=== PATIENT | male | born 1995 | race Caucasian/White ===

== ENCOUNTER 2022-07-16 09:33 | Emergency (ER) | payer BC, SELFPAY ==
[2022-07-16 09:49] VITALS: BP 141/88; PULSE 67; RESP 18; TEMP 36.6; O2SAT 99; BMI 24.1
[2022-07-16 10:14] LABS: UTC Influenza A Antigen Negative (Negative); UTC Influenza B Antigen Negative (Negative)
--- NOTE | 2022-07-16 10:15 | EXP.UTC ---
Discharge Plan Disposition Patient Disposition: Home, Self-Care Condition: Good Prescriptions Prescriptions: New ondansetron HCl 4 mg tablet 4 mg PO Q8H 4 Days Qty: 12 0RF Referrals Follow up/Referrals: Provider,Referral, [Primary Care Provider] - See instructions Activity Restrictions/Add. Instructions Additional Instructions/Restrictions: *Monitor Temp, Over the counter Motrin or Tylenol as directed/as needed Tylenol every 4 hours and Motrin every 6 hours (as long as your family doctor has told you that you can take it) for fever or pain. and straight to ER if unable to lower temp less than 101.0 after medication given *Warm salt water gargles may help to soothe the throat *Throat Lozenges? *Warm fluids like tea with honey may help to soothe the throat? *Sleep elevated *Humidifier/Vaporizer Drink extra fluids with and between meals. If you have difficulty drinking, try very small amounts of water or suck on ice chips. ? Avoid fruit juices, as these do not replace minerals and can actually increase diarrhea. ? Children and adults can use sports drinks to replenish electrolytes. Younger children and infants should use products formulated for children, like oral rehydration solutions. ? Eat food in small amounts and let your stomach recover. ? Get lots of rest. You may feel tired or weak. ? No greasy or fried foods for the next 24-48 hours BRAT diet Bananas Rice Apples and [place] ? Make sure to drink plenty of liquids ? Return if needed ? Straight to ER if any life threatening symptoms ? Zofran as prescribed ? Follow up with family doctor in the next 48-72 hours if no improvement or any worsening of symptoms Your throat swab was sent for culture. Those results are typically sent to your primary care. Be sure to follow up in 2-3 days with your family doctor/primary care physician if no improvement so they can review those result and treat if necessary. If you don?t have a primary care doctor, I recommend you get one but in the mean time, you will have to return to a walk in clinic Follow up IMMEDIATELY for new or worsening symptoms or no Noticeable improvement over the next 48-72 hours. 911 for difficulty breathing or swallowing Clinical Impressions Clinical Impression: Viral syndrome Stand Alone Forms Stand Alone Forms: Work/School Release Instructions Patient Instructions: Sore Throat, DI for Fever (Symptom) -- Adult, Nausea and Vomiting-Adult Discharge ED Provider[place]ena [place] [facility] [place] General Stated complaint: Vomitting, chills, BA Mode of Arrival: Ambulatory Source of Information: Patient Limitations: No Limitations Time Seen by Provider: 07/16/22 10:15 Description of Symptoms (Recalled from Triage Doc. by RN): VOMITING, BODY ACHES, FEVER SINCE LAST NIGHT HEENT Symptoms (Recalled from RN notes): No Resp Symptoms (Recalled from RN notes): Yes Skin Symptoms (Recalled from RN notes): No MS Symptoms (Recalled from RN notes): No Functional Status (Recalled from RN notes): BODYACHES History of Present Illness Provider Complaint: Patient states that last night he started with body aches, cold chills, nausea vomiting and sore throat States that he was up most of the night vomiting and this morning he was still not feeling well so he came in to get checked Related Data Previous Rx's Medication Instructions Recorded ondansetron HCl 4 mg tablet 4 mg PO Q8H 4 days #12 tabs 07/16/22 Allergies Allergy/AdvReac Type Severity Reaction Status Date / Time No Known Allergies Allergy Unverified 02/13/21 16:35 Worker's Comp Is this a Worker's Comp case?: No PFSH PFSH Social History Smoking Status: Never smoker alcohol intake: never substance use type: denies use current occupational status: employed Travel in the last 8 weeks: None household members: family housing: [facility]
[2022-07-16 10:30] LABS: UTC Strep Screen (Rapid) Negative (Negative)
[2022-07-16 10:40] VITALS: BP 141/88; PULSE 67; RESP 18; TEMP 36.6; O2SAT 99
== END 2022-07-16 10:40 | disposition home or self-care (01) ==
PROVIDERS: Emergency Provider Nurse Practitioner
DX: B34.9 Viral infection, unspecified (principal); R11.10 Vomiting, unspecified; R50.9 Fever, unspecified
CPT/HCPCS: 87804; 87880; 99212; G0463

== ENCOUNTER 2022-08-20 15:15 | Emergency (ER) | payer BC, SELFPAY ==
[2022-08-20 15:16] VITALS: BP 155/110; PULSE 102; RESP 18; TEMP 36.7; O2SAT 100; BMI 24.3
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
[2022-08-20 16:00] VITALS: BP 139/90; O2SAT 99
--- NOTE | 2022-08-20 16:14 | PC.NURSE ---
speaking to [facility]
--- NOTE | 2022-08-20 16:29 | PC.NURSE ---
DR KELLY SPOKE WITH DR NICOLAS HE IS GONNA FOLLOW UP WITH THEM IN THEIR CLINIC
[2022-08-20 16:30] VITALS: BP 131/94; PULSE 90; O2SAT 98
[2022-08-20 17:00] VITALS: BP 132/92; PULSE 87; O2SAT 99
[2022-08-20 17:30] VITALS: BP 139/99; PULSE 83; O2SAT 99
[2022-08-20 17:52] VITALS: BP 139/99; PULSE 83; RESP 18; TEMP 36.6; O2SAT 98
== END 2022-08-20 17:54 | disposition home or self-care (01) ==
PROVIDERS: Emergency Provider Emergency Medicine
DX: T65.91XA Toxic effect of unspecified substance, accidental (unintentional), initial encounter (principal); T22.511A Corrosion of first degree of right forearm, initial encounter; T32.0 Corrosions involving less than 10% of body surface
CPT/HCPCS: 99283

== ENCOUNTER 2022-11-25 21:52 | Emergency (ER) | payer BC, SELFPAY ==
[2022-11-25 21:54] VITALS: BP 133/88; PULSE 89; RESP 16; TEMP 36.4; O2SAT 100; BMI 25.8
[2022-11-25 22:22] LABS: Strep Scrn Group A (Rapid) Negative (Negative)
[2022-11-25 22:30] VITALS: BP 132/94; PULSE 77; O2SAT 99
[2022-11-25 23:00] VITALS: BP 135/85; PULSE 80; O2SAT 99
--- NOTE | 2022-11-25 23:01 | PC.NURSE ---
Dr. Mclain at
--- NOTE | 2022-11-25 23:02 | HMH.EDGENADL ---
Discharge Plan Disposition Patient Disposition: Home, Self-Care Chief Complaint: PAIN Prescriptions Prescriptions: No Action ondansetron HCl 4 mg tablet 4 mg PO Q8H 4 Days Qty: 12 0RF oxycodone-acetaminophen [Percocet] 7.5-325 mg tablet 1 tab PO Q6H PRN (Reason: pain) Qty: 20 0RF Referrals Follow up/Referrals: Provider,Referral, [Primary Care Provider] - See instructions Clinical Impressions Clinical Impression: Pharyngitis Instructions Patient Instructions: Sore Throat Discharge ED Provider: [facility] (ED)[facility] HPI General Chief complaint: PAIN Stated complaint: sore throat, Feels as if closing up Time Seen by Provider: 11/25/22 23:02 Mode of Arrival: Ambulatory Source of Information: Patient and Medical Record Limitations: No Limitations Description of Symptoms (Recalled from ER Triage Doc. by RN): pt c/o sore throat, states feels swollen x4 days. Pt reports did have a fever 4 days ago. History of Present Illness HPI narrative: sore throat with feeling of closure over the last few days - no rash but has fever - no diabetes or tob Onset (ago): day(s) Location: mouth Severity: moderate Consistency: intermittent Treatments prior to arrival: none Related Data Previous Rx's Medication Instructions Recorded ondansetron HCl 4 mg tablet 4 mg PO Q8H 4 days #12 tabs 07/16/22 oxycodone-acetaminophen 7.5 mg-325 1 tab PO Q6H PRN pain #20 tabs 08/20/22 mg tablet (Percocet) Allergies Allergy/AdvReac Type Severity Reaction Status Date / Time No Known Allergies Allergy Unverified 02/13/21 16:35 [facility] Disclaimer: The information contained in this section may have been updated after the patient was seen, as this information can be updated by other users. Social History Smoking Status: Never smoker alcohol intake: never substance use type: denies use current occupational status: employed Travel in the last 8 weeks: None household members: family housing: house ROS Obtained: Yes All systems reviewed & no additional complaints except as documented Physical Exam General General appearance: alert Head Head exam: normocephalic Eye Eye exam: Present PERRL and EOMI ENT ENT exam: Present mucous membranes moist and TM's normal bilaterally Expanded ENT Exam Mouth exam: Absent drooling Throat exam: Present tonsillar erythema; Absent tonsillar exudate or muffled voice Neck Neck exam: Present full ROM and trachea midline Respiratory Respiratory exam: Present normal lung sounds bilaterally; Absent respiratory distress Cardiovascular Cardiovascular exam: Present regular rate Abdominal Exam Abdominal exam: Present soft Extremities Exam Extremities exam: Present full ROM Neurological Exam Neurological exam: Present alert, oriented X3 and CN II-XII intact; Absent motor sensory deficit Psychiatric Psychiatric exam: Present normal affect Skin Skin exam: Absent rash Medical Decision Making Medical Records Medical records reviewed: Yes I reviewed the patient's medical records. Russell Inquiry Pt receiving controlled substance: No Vital Signs: 11/25/22 21:54 11/25/22 22:30 Temperature 97.6 F Temperature Source Oral Pulse Rate 77 Pulse Rate [Right Radial] 89 Respiratory Rate 16 Blood Pressure 132/94 H Blood Pressure [Right Arm] 133/88 Blood Pressure Mean [Right Arm] 103 Blood Pressure Source [Right Arm] Automatic Cuff Blood Pressure Position [Right Arm] Sitting 02 Sat by Pulse Oximetry 100 99 Oxygen Delivery Method Room Air Room Air Lab Data Lab results reviewed: Yes I reviewed the patient's lab results. Lab Results 11/25/22 22:01: Group A Strep Rapid Negative Orders (Tests/Meds): ORDERS Category Date Time Status Strep Scrn Group A (Rapid) Stat Lab 11/25/22 22:01 Completed Strep Screen Confirmation Stat Micro 11/25/22 22:01 Received Medical Decision Narrative
[2022-11-25 23:16] LABS: Basophils # 0.1 K/mm3 (0-0.2); Basophils % 0.8 % (0.1-2.0); Eosinophils # 0.1 K/mm3 (0.0-0.4); Eosinophils % 0.9 % (0.1-12.0); Hematocrit 44.2 % (42.0-52.0); Hemoglobin 14.2 g/dL (14.1-18.0); Lymphocytes # 2.1 K/mm3 (0.7-4.5); Lymphocytes % 21.6 % (10-50); Mean Corpuscular HGB Conc 32.2 g/dL (31.8-35.4); Mean Corpuscular Hemoglobin 26.9 pg (27.0-31.2); Mean Corpuscular Volume 83.4 fl (80-94); Monocytes # 0.7 K/mm3 (0.1-1.0); Monocytes % 6.7 % (1.7-9.3); Neutrophils # 6.8 K/mm3 (1.8-7.8); Neutrophils % 69.9 % (37.0-80.0); Platelet Count 278 K/mm3 (142-424); Red Cell Distribution Width 13.2 % (11.5-17.5); White Blood Count 9.7 K/mm3 (4.8-10.8)
--- NOTE | 2022-11-25 23:19 | HMH.EDGENADL ---
Discharge Plan Disposition Patient Disposition: Home, Self-Care Prescriptions Prescriptions: New cephalexin [cephalexin] 500 mg capsule 500 mg PO TID Qty: 30 0RF No Action ondansetron HCl 4 mg tablet 4 mg PO Q8H 4 Days Qty: 12 0RF oxycodone-acetaminophen [Percocet] 7.5-325 mg tablet 1 tab PO Q6H PRN (Reason: pain) Qty: 20 0RF Referrals Follow up/Referrals: Provider,Referral, MD [Primary Care Provider] - See instructions Clinical Impressions Clinical Impression: Pharyngitis Stand Alone Forms Stand Alone Forms: Work/School Release Instructions Patient Instructions: Sore Throat Discharge ED Provider: [facility] ([facility] HPI General Chief complaint: PAIN Stated complaint: sore throat, Feels as if closing up Time Seen by Provider: 11/25/22 23:02 Mode of Arrival: Ambulatory Source of Information: Patient and Medical Record Limitations: No Limitations Description of Symptoms (Recalled from ER Triage Doc. by RN): pt c/o sore throat, states feels swollen x4 days. Pt reports did have a fever 4 days ago. History of Present Illness Onset (ago): day(s) Location: mouth Severity: moderate Treatments prior to arrival: none Related Data Previous Rx's Medication Instructions Recorded ondansetron HCl 4 mg tablet 4 mg PO Q8H 4 days #12 tabs 07/16/22 oxycodone-acetaminophen 7.5 mg-325 1 tab PO Q6H PRN pain #20 tabs 08/20/22 mg tablet (Percocet) cephalexin 500 mg capsule 500 mg PO TID #30 caps 11/25/22 Allergies Allergy/AdvReac Type Severity Reaction Status Date / Time No Known Allergies Allergy Unverified 02/13/21 16:35 [facility] Disclaimer: The information contained in this section may have been updated after the patient was seen, as this information can be updated by other users. Social History Smoking Status: Never smoker alcohol intake: never substance use type: denies use current occupational status: employed Travel in the last 8 weeks: None household members: family housing: house ROS Obtained: Yes All systems reviewed & no additional complaints except as documented Physical Exam General General appearance: alert Head Head exam: normocephalic Eye Eye exam: Present PERRL and EOMI ENT ENT exam: Present normal oropharynx, mucous membranes moist and TM's normal bilaterally Neck Neck exam: Present trachea midline Respiratory Respiratory exam: Absent respiratory distress Cardiovascular Cardiovascular exam: Present regular rate Abdominal Exam Abdominal exam: Present soft Extremities Exam Extremities exam: Present full ROM Neurological Exam Neurological exam: Present alert, oriented X3 and CN II-XII intact Psychiatric Psychiatric exam: Present normal affect Skin Skin exam: Absent rash Medical Decision Making Medical Records Medical records reviewed: Yes I reviewed the patient's medical records. Russell Inquiry Pt receiving controlled substance: No Vital Signs: 11/25/22 21:54 11/25/22 22:30 11/25/22 23:00 Temperature 97.6 F Temperature Source Oral Pulse Rate 77 80 Pulse Rate [Right Radial] 89 Respiratory Rate 16 Blood Pressure 132/94 H 135/85 Blood Pressure [Right Arm] 133/88 Blood Pressure Mean [Right Arm] 103 Blood Pressure Source [Right Arm] Automatic Cuff Blood Pressure Position [Right Arm] Sitting 02 Sat by Pulse Oximetry 100 99 99 Oxygen Delivery Method Room Air Room Air Room Air 11/25/22 23:56 Temperature 97.7 F Temperature Source Oral Pulse Rate 84 Pulse Rate [Right Radial] Respiratory Rate 16 Blood Pressure 135/85 Blood Pressure [Right Arm] Blood Pressure Mean [Right Arm] Blood Pressure Source [Right Arm] Blood Pressure Position [Right Arm] 02 Sat by Pulse Oximetry Oxygen Delivery Method Lab Data Lab results reviewed: Yes I reviewed the patient's lab results. Lab Results 11/25/22 22:01: Group A Strep Rapid Negative 11/25/22 2
[2022-11-25 23:25] LABS: Alanine Aminotransferase 33 U/L (12-78); Albumin Level 4.6 g/dl (3.5-5.0); Albumin/Globulin Ratio 1.4 (1.1-1.8); Alkaline Phosphatase 124 U/L (38-126); Anion Gap 5.8 mEq/L (5-15); Aspartate Amino Transferase 26 U/L (17-59); Bilirubin,Total 0.4 mg/dl (0.2-1.3); Blood Urea Nitrogen 6 mg/dl (9-20); Calcium 9.2 mg/dl (8.4-10.2); Carbon Dioxide 29 mmol/L (22.0-30.0); Chloride 107 mmol/L (98-107); Creatinine Clearance Estimated 171 mL/min (50-200); Estimated Glomerular Filt Rate 134 ml/min (>60); GFR (African American) 162 ML/MIN (>60); Globulin 3.3 g/dL (1.3-3.2); Glucose 94 mg/dl (74-100); Potassium 3.8 mmoL/L (3.5-5.1); Sodium 138 mmol/L (136-145); Total Protein,Serum 7.9 g/dl (6.3-8.2)
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
[2022-11-25 23:56] VITALS: BP 135/85; PULSE 84; RESP 16; TEMP 36.5
== END 2022-11-26 00:20 | disposition home or self-care (01) ==
PROVIDERS: Emergency Provider Emergency Medicine
DX: J02.9 Acute pharyngitis, unspecified (principal)
CPT/HCPCS: 80053; 85025; 87430; 93041; 96361; 96374; 96375; 99285; J0696

== ENCOUNTER 2023-04-19 18:24 | Emergency (ER) | payer BC, SELFPAY ==
[2023-04-19 18:30] VITALS: BP 129/79; PULSE 78; RESP 18; TEMP 36.7; O2SAT 98; BMI 28.4
--- NOTE | 2023-04-19 19:08 | EXP.UTC ---
Discharge Plan Disposition Patient Disposition: Home, Self-Care Condition: Good Prescriptions Prescriptions: New ondansetron 4 mg tablet,disintegrating 4 mg PO Q8H PRN (Reason: nausea and vomiting) Qty: 10 0RF Referrals Follow up/Referrals: Provider,Referral, MD [Primary Care Provider] - See instructions Activity Restrictions/Add. Instructions Additional Instructions/Restrictions: Drink extra fluids with and between meals. If you have difficulty drinking, try very small amounts of water or suck on ice chips. ? Avoid fruit juices, as these do not replace minerals and can actually increase diarrhea. ? Children and adults can use sports drinks to replenish electrolytes. Younger children and infants should use products formulated for children, like oral rehydration solutions. ? Eat food in small amounts and let your stomach recover. ? Get lots of rest. You may feel tired or weak. ? No greasy or fried foods for the next 24-48 hours BRAT diet Bananas Rice Apples and [place] ? Make sure to drink plenty of liquids ? Return if needed ? Straight to ER if any life threatening symptoms ? Zofran as prescribed ? You was given an outpatient order for diarrhea panel, please collect specimen and bring back to outpatient lab then call back to the [facility] or follow up with family doctor for results ? Follow up with family doctor in the next 48-72 hours if no improvement or any worsening of symptoms Clinical Impressions Clinical Impression: Viral syndrome Stand Alone Forms Stand Alone Forms: Work/School Release Instructions Patient Instructions: Diarrhea, DI for Nausea -- Adult, Nausea and Vomiting-Adult Discharge ED Provider: Alena Singh [facility] [place] General Stated complaint: nausea Mode of Arrival: Ambulatory Source of Information: Patient Limitations: No Limitations Time Seen by Provider: 04/19/23 18:30 Description of Symptoms (Recalled from Triage Doc. by RN): PATIENT C/O VOMITING AND DIARRHEA SINCE LAST NIGHT HEENT Symptoms (Recalled from RN notes): No Resp Symptoms (Recalled from RN notes): No Skin Symptoms (Recalled from RN notes): No MS Symptoms (Recalled from RN notes): No Functional Status (Recalled from RN notes): WNL History of Present Illness Provider Complaint: States that yesterday he went to [facility] and eat some chili before he left and started with N/V/D States that he has continued with the Nausea, vomiting and diarrhea and he took some Pepto but not helped much so he came in to get something for nausea Related Data Previous Rx's Medication Instructions Recorded ondansetron 4 mg disintegrating 4 mg PO Q8H PRN nausea and 04/19/23 tablet vomiting #10 tabs Allergies Allergy/AdvReac Type Severity Reaction Status Date / Time No Known Allergies Allergy Unverified 02/13/21 16:35 Worker's Comp Is this a Worker's Comp case?: No PFSH PFS Disclaimer: The information contained in this section may have been updated after the patient was seen, as this information can be updated by other users. Social History Smoking Status: Never smoker alcohol intake: never substance use type: denies use current occupational status: employed Travel in the last 8 weeks: None household members: family housing: house ROS Obtained: Yes All systems reviewed & no additional complaints except as documented and Yes Systems reviewed as appropriate & no additional complaints except as documented Constitutional Constitutional: Reports system reviewed and no additional complaints, except as documented, Reports as per HPI and Denies fever(s) ENT Ears, Nose, Mouth, and Throat: Reports system reviewed and no additional complaints, except as documented and Reports as per HPI Cardiovascular Cardiovascular: Reports system reviewed and no additional complaints, excep
[2023-04-19 19:29] VITALS: BP 129/79; PULSE 78; RESP 18; TEMP 36.7; O2SAT 98
== END 2023-04-19 19:31 | disposition home or self-care (01) ==
PROVIDERS: Emergency Provider Nurse Practitioner
DX: B34.9 Viral infection, unspecified (principal); R11.2 Nausea with vomiting, unspecified; R19.7 Diarrhea, unspecified
CPT/HCPCS: 99212; 99214; G0463

== ENCOUNTER 2023-10-26 08:11 | Emergency (ER) | payer BC, SELFPAY ==
[2023-10-26 08:20] VITALS: BP 119/86; PULSE 114; RESP 18; TEMP 37.1; O2SAT 98; BMI 25.4
--- NOTE | 2023-10-26 08:37 | ED_ITS ---
Discharge Plan Disposition Patient Disposition: Home, Self-Care Condition: Good Prescriptions Prescriptions: New ondansetron 4 mg tablet,disintegrating 4 mg PO Q8H PRN (Reason: nausea and vomiting) Qty: 15 0RF dicyclomine 10 mg capsule 10 mg PO TID PRN (Reason: abdominal pain/cramping) Qty: 15 0RF Referrals Follow up/Referrals: Provider,Referral, MD [Primary Care Provider] - See instructions Activity Restrictions/Add. Instructions Additional Instructions/Restrictions: Drink extra fluids with and between meals. If you have difficulty drinking, try very small amounts of water or suck on ice chips. ? Avoid fruit juices, as these do not replace minerals and can actually increase diarrhea. ? Children and adults can use sports drinks to replenish electrolytes. Younger children and infants should use products formulated for children, like oral rehydration solutions. ? Eat food in small amounts and let your stomach recover. ? Get lots of rest. You may feel tired or weak. ? No greasy or fried foods for the next 24-48 hours BRAT diet Bananas Rice Apples and [place] ? Make sure to drink plenty of liquids ? Return if needed ? Straight to ER if any life threatening symptoms ? Zofran as prescribed ? You was given an outpatient order for diarrhea panel, please collect specimen and bring back to outpatient lab then call back to the [facility] or follow up with family doctor for results ? Follow up with family doctor in the next 48-72 hours if no improvement or any worsening of symptoms Clinical Impressions Clinical Impression: Viral syndrome Instructions Patient Instructions: Nausea and Vomiting-Adult Discharge ED Provider: Alena Singh [facility] [place] HPI General Stated complaint: vomiting, diarrea, fever, body aches, chillss Mode of Arrival: Ambulatory Source of Information: Patient Limitations: No Limitations Time Seen by Provider: 10/26/23 08:37 Description of Symptoms (Recalled from Triage Doc. by RN): PATIENT C/O VOMITING, DIARRHEA, AND BODY ACHES THAT STARTED LAST NIGHT AFTER GOING OUT TO EAT. HEENT Symptoms (Recalled from RN notes): No Resp Symptoms (Recalled from RN notes): No Skin Symptoms (Recalled from RN notes): No MS Symptoms (Recalled from RN notes): No Functional Status (Recalled from RN notes): WNL History of Present Illness Provider Complaint: Patient states that he went out to eat last night and after eating he started feeling ill States that after he got home he started having vomiting and diarrhea States that he is now sore from the vomiting and feeling achy all over and sore from vomiting so this morning he came in to get checked Related Data Previous Rx's Medication Instructions Recorded dicyclomine 10 mg capsule 10 mg PO TID PRN abdominal 10/26/23 pain/cramping #15 caps ondansetron 4 mg disintegrating 4 mg PO Q8H PRN nausea and 10/26/23 tablet vomiting #15 tabs Allergies Allergy/AdvReac Type Severity Reaction Status Date / Time No Known Allergies Allergy Unverified 02/13/21 16:35 Worker's Comp Is this a Worker's Comp case?: No PFSH [facility] Disclaimer: The information contained in this section may have been updated after the patient was seen, as this information can be updated by other users. Medical History (Updated 10/26/23 @ 08:48 by Alena Singh APRN) No significant past medical history Social History Smoking Status: Never smoker alcohol intake: never substance use type: denies use current occupational status: employed Travel in the last 8 weeks: None household members: family housing: house ROS Obtained: Yes All systems reviewed & no additional complaints except as documented and Yes Systems reviewed as appropriate & no additional complaints except as documented Constitutional Constitutional: Reports system reviewed and no additional complaints, except as documented, Reports as per HPI, Reports body ache and Reports chills ENT Ears, Nose, Mouth, and Throat: Reports system reviewed and no additional complaints, except as documented and Reports as per HPI Cardiovascular Cardiovascular: Reports system reviewed and no additional complaints, except as documented and Reports as per HPI Respiratory Respiratory: Reports system reviewed and no additional complaints, except as documented and Reports as per HPI Gastrointestinal Gastrointestingal: Reports system reviewed and no additional complaints, except as documented, as per HPI, cramping, diarrhea, nausea and vomiting Physical Exam General General appearance: alert and in no apparent distress ENT ENT exam: Present mucous membranes moist Expanded ENT Exam Nose exam: Absent sinus tenderness Throat exam: Present normal inspection Respiratory Respiratory exam: Present normal lung sounds bilaterally; Absent respiratory distress or wheezes Cardiovascular Cardiovascular exam: Present regular rate, normal rhythm and tachycardia Abdominal Exam Abdominal exam: Present soft and normal bowel sounds; Absent distention or tenderness Neurological Exam Neurological exam: Present alert, oriented X3 and normal gait Medical Decision Making Russell Inquiry Pt receiving controlled substance: No Russell was queried for this patient: No Vital Signs: 10/26/23 08:20 Temperature 98.8 F Temperature Source Oral Pulse Rate [Right Brachial] 114 H Respiratory Rate 18 Blood Pressure [Right Arm] 119/86 Blood Pressure Mean [Right Arm] 97 Blood Pressure Source [Right Arm] Automatic Cuff Blood Pressure Position [Right Arm] Sitting 02 Sat by Pulse Oximetry 98 Oxygen Delivery Method Room Air Lab Data Lab results reviewed: Yes I reviewed the patient's lab results. Medical Decision Narrative: After zofran patient was given gatoraid to see if he could tolerate PO challenge if no vomiting will dc home No vomiting after zofran tolerated po
[2023-10-26 08:42] LABS: UTC Influenza A Antigen Negative (Negative); UTC Influenza B Antigen Negative (Negative)
[2023-10-26] MEDS: ONDANSETRON 4MG ODT 4 MG SL (09:02)
[2023-10-26 09:31] VITALS: BP 119/86; PULSE 114; RESP 18; TEMP 37.1; O2SAT 98
== END 2023-10-26 09:33 | disposition home or self-care (01) ==
PROVIDERS: Emergency Provider Nurse Practitioner
DX: R11.2 Nausea with vomiting, unspecified (principal); R19.7 Diarrhea, unspecified; R10.819 Abdominal tenderness, unspecified site; R68.83 Chills (without fever); M79.18 Myalgia, other site
CPT/HCPCS: 87804; 99212; 99214; G0463

== ENCOUNTER 2024-11-07 02:29 | Emergency (ER) | payer OTHER, SELFPAY ==
[2024-11-07 02:30] VITALS: BP 128/94; PULSE 85; RESP 20; TEMP 36.4; O2SAT 100; BMI 24.3
[2024-11-07 02:39] VITALS: BP 126/94; PULSE 80; RESP 16; TEMP 36.6; O2SAT 99
--- NOTE | 2024-11-07 02:39 | ED_ITS ---
Discharge Plan Disposition Patient Disposition: Home, Self-Care Condition: Fair Prescriptions Prescriptions: No Action ondansetron 4 mg tablet,disintegrating 4 mg PO Q8H PRN (Reason: nausea and vomiting) Qty: 15 0RF dicyclomine 10 mg capsule 10 mg PO TID PRN (Reason: abdominal pain/cramping) Qty: 15 0RF Activity Restrictions/Add. Instructions Additional Instructions/Restrictions: You were evaluated in the ER and are appropriate for discharge at this time. Take Tylenol (acetaminophen) or ibuprofen if needed for body aches or fevers. Be mindful that [id number] cold and flu medications like DayQuil/NyQuil contain Tylenol (acetaminophen), be careful not to accidentally overdose on acetaminophen. Drink plenty of water, Gatorade, and Pedialyte to maintain good hydration. Rest and recover. Follow-up with primary care doctor, return to the ER with new, worsening, or otherwise concerning symptoms. Clinical Impressions Clinical Impression: Viral syndrome, Cough, Nasal congestion Instructions Patient Instructions: Influenza, DI for H1N1 Influenza -- Adult Print Language Print Language: German Discharge ED Provider: Jailyn Escalante General Adult HPI General Stated complaint: cough, SOA, congestion, chills, fever Time Seen by Provider: 11/07/24 02:31 History of Present Illness HPI narrative: 29-year-old male presents to the ER with concerns of nasal congestion, cough, body aches. Patient reports his symptoms have been going on for the last 2 to 3 days. He has had chills but no documented fevers. He states he has coughed hard enough a few times to vomit and have to catch his breath but is not having nausea, vomiting, diarrhea, or abdominal pain. He does not have headache, dizziness, numbness, tingling, or weakness. No chest pain or difficulty breathing. He feels fatigued. He has no dysuria or hematuria. Patient has been taking DayQuil, NyQuil at home without significant improvement of symptoms. He does not smoke. No chronic medical conditions, no daily medications, no known drug allergies. No other associated symptoms. Related Data Previous Rx's ?Medication ?Instructions ?Recorded dicyclomine 10 mg capsule 10 mg PO TID PRN abdominal 10/26/23 pain/cramping #15 caps ondansetron 4 mg disintegrating 4 mg PO Q8H PRN nausea and 10/26/23 tablet vomiting #15 tabs Allergies Allergy/AdvReac Type Severity Reaction Status Date / Time No Known Allergies Allergy Unverified 02/13/21 16:35 [facility] Disclaimer: The information contained in this section may have been updated after the patient was seen, as this information can be updated by other users. Medical History (Updated 11/07/24 @ 02:38 by Jailyn Escalante MD) No significant past medical history Social History Smoking Status: Never smoker alcohol intake: never substance use type: denies use current occupational status: employed Travel in the last 8 weeks: None household members: family housing: house Other Medical History Have you received the Flu Vaccine for this season: No Have you received the Pneumonia Vaccine: No ROS Obtained: Yes Systems reviewed as appropriate & no additional complaints except as documented Per HPI Physical Exam General General appearance: alert and in no apparent distress Head Head exam: atraumatic and normocephalic Eye Eye exam: Present PERRL and EOMI ENT ENT exam: Present mucous membranes moist Neck Neck exam: Present normal inspection and full ROM Chest Chest inspection: Present symmetric chest wall rise Respiratory Respiratory exam: Present normal lung sounds bilaterally; Absent respiratory distress, wheezes or stridor Cardiovascular Cardiovascular exam: Present regular rate and normal rhythm Abdominal Exam Abdominal exam: Present soft; Absent distention or tenderness Extremities Exam Extremities exam: Present full ROM; Absent edema or calf tenderness Neurological Exam Neurological exam: Present alert and oriented X3; Absent motor sensory deficit Psychiatric Psychiatric exam: Present normal affect and normal mood Skin Skin exam: Present warm and dry Medical Decision Making Medical Records Medical records reviewed: Yes I reviewed the patient's medical records. Screening: Per USPSTF and CDC recommendations, given the prevalence of disease in our region, it is our hospital?s policy to screen for HIV and viral Hepatitis for all patients aged 18 and over and those with ongoing risk factors. MR Comment: Patient evaluated at [facility] 1 year ago with vomiting and diarrhea, discharged on ondansetron and dicyclomine. Russell Inquiry Pt receiving controlled substance: No Medical Decision Narrative: In summary, this otherwise healthy 29-year-old man presents to the emergency department today with cough, congestion, body aches, chills. On initial evaluation patient is hemodynamically stable, afebrile, lungs clear bilaterally with good air movement throughout, saturating 99 to 100% on room air, cardiac exam benign, GCS 15, no neurologic deficits, remainder of exam benign. Differential diagnosis includes but is not limited to viral syndrome including COVID, influenza, RSV, rhinovirus, among others. Based on current viral pattern in this community, most likely influenza A. I considered possibility of pneumonia with patient's complaint of cough, however he is afebrile, no chest pain, saturating well on room air, benign pulmonary exam. I considered perform ing chest x-ray but do not believe it is indicated at this time given the extremely low pretest probability. 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 His duration of symptoms has been multiple days so he is not a candidate for Tamiflu. He was independently ambulatory into the ER and overall well-appearing with normal vitals and a benign exam. I do not believe he requires further evaluation or intervention at this time. I gave the patient instructions on continued symptomatic monitoring and management at home, follow- up instructions, and return precautions for the ER. He indicated understanding and the patient was discharged in stable condition. Critical Care Critical Care Time Critical Care Time: No
== END 2024-11-07 02:41 | disposition home or self-care (01) ==
PROVIDERS: Emergency Provider Emergency Medicine
DX: B34.9 Viral infection, unspecified (principal); R05.9 Cough, unspecified; R09.81 Nasal congestion; R06.02 Shortness of breath; R11.10 Vomiting, unspecified; M79.10 Myalgia, unspecified site; R53.83 Other fatigue
CPT/HCPCS: 99282